=== PATIENT | male | born 1990 | race Hispanic/Latino ===

== ENCOUNTER 2017-12-20 11:43 | Emergency (ER) | payer OTHER ==
[~2017-12-20 11:43] MED LIST: BLOO-140 MC; CEPH-578 PO; LIRA0.6P2 SQ; METF-527 PO; TERB250T51 PO; [UNRECOGNIZED DRUG - CODE] MC; [UNRECOGNIZED DRUG - CODE] MC
[2017-12-20 12:05] LABS: BASOPHILS % (AUTO) 0.9 % (0.0-5.0); EOSINOPHILS % (AUTO) 2.2 % (0.0-8.0); HEMATOCRIT 48.7 % (42-54); LYMPHOCYTES % (AUTO) 21.4 % (21.0-51.0); MEAN CORPUSCULAR HGB CONC 33.5 g/dL (32.0-36.0); MEAN CORPUSCULAR VOLUME 86.6 fL (79-99); MONOCYTES % (AUTO) 8.5 % (3.0-13.0); NUCLEATED RED BLOOD CELLS 0.1 % (0.0-0.19); PLATELET COUNT (AUTO) 218 K/uL (130-400); RED BLOOD CELL COUNT(AUTO) 5.63 MIL/uL (4.50-6.20); WHITE BLOOD COUNT (AUTO) 9.3 K/uL (4.8-10.8)
[2017-12-20 12:08] LABS: ABG BASE EXCESS -4.3 mmol/L (-2.0-3.0); ABG HCO3 21.9 mmol/L (21.0-28.0); ABG OXYGEN SATURATION 50.6 % (95.0-99.0); ABG PCO2 44 mmHg (35-48)
[2017-12-20 12:19] LABS: ACETONE,BLOOD NEGATIVE (NEGATIVE)
[2017-12-20 12:24] LABS: ALANINE AMINOTRANSFERASE 59 U/L (12-78); ALBUMIN 4.1 g/dL (3.5-5.0); ASPARTATE AMINOTRANSFERASE 27 U/L (10-37); BILIRUBIN,TOTAL 0.8 mg/dL (0.2-1.0); CARBON DIOXIDE 22 mmol/L (21-32); CHLORIDE 96 mmol/L (101-111); CREATININE 1.4 mg/dL (0.5-1.5); GLOMERULAR FILTR. RATE CALC 65 mL/min (>60); POTASSIUM 3.9 mmol/L (3.5-5.1); SODIUM SERUM 133 mmol/L (136-145); TOTAL PROTEIN, SERUM 8.6 g/dL (6.0-8.3); UREA NITROGEN, BLOOD 14 mg/dL (7-18)
[2017-12-20 12:28] LABS: GLUCOSE,RANDOM 643 mg/dL (70-105)
[2017-12-20] MEDS ORDERED: SODIUM CHLORIDE 0.9% 1000ML 2,000 ML IV ONE (12:40)
[2017-12-20] MEDS ORDERED: INSULIN HUMULIN R 100 UNIT/ML 3ML ONE ×2 (12:41→14:25)
[2017-12-20 12:55] LABS: APPEARANCE,URINE Clear (CLEAR); BILIRUBIN,URINE Negative (NEGATIVE); COLOR,URINE Yellow (YELLOW); GLUCOSE, URINE (UA) >=1000 mg/dL (NEGATIVE); KETONES,URINE 40 mg/dL (NEGATIVE); LEUKOCYTE ESTERASE ,URINE Negative (NEGATIVE); NITRATE,URINE Negative (NEGATIVE); OCCULT BLOOD,URINE Negative (NEGATIVE); PROTEIN,URINE Trace (NEGATIVE); UROBILINOGEN,URINE 0.2 mg/dL (0.2-1.0)
[2017-12-20 13:03] LABS: BACTERIA,URINE Rare /HPF (None Seen); RBC,URINE 0-1 /HPF (0-1); SQUAMOUS EPITHELIAL CELL,UR Rare /HPF (0-2); WBC,URINE 0-1 /HPF (0-1)
== END 2017-12-20 16:06 | disposition home or self-care (01) ==
LOC: EDH 11:43
DX: E11.65 Type 2 diabetes mellitus with hyperglycemia (principal)
CPT/HCPCS: 36415; 36600; 80053; 81001; 82009; 82803; 82948 ×2; 85025; 96361; 96374; 96376; 99285; J1815 ×2; J7030